=== PATIENT | male | born 1970 | race Caucasian/White ===

== ENCOUNTER → 2017-05-26 | Outpatient (CLI) | payer MEDICARE, MEDICAID ==
[~2017-05-26] MED LIST: ACETAMINOPHEN-1 EAC1 PO; ACIPHEX 20 MG T20 MG PO; ASPIRIN325; ASPIRIN81 M2 PO; BACTRIM DS TAB1 EACH PO; BAYER CHEWABLE81 MG PO; CARVEDILOL12.5 MG; CARVEDILOL6.25 MG PO; CHANTIX1 MG PO; CHLORTHALIDONE25 MG PO; CLARITIN10 MG PO; CLEOCIN HCL300 MG PO; CLINDAMYCIN HC150 MG PO; COREG CR20 MG; CREON DR 24,001 EACH PO; CRESTOR10 MG; CRESTOR10 MG PO; DOXYCYCLINE 10100 M1 PO; DOXYCYCLINE 10100 M2 PO; DOXYCYCLINE 10100 MG PO; FISH OIL; FISH OIL 1,001000 M1 PO; FLEXERIL PO; FLOMAX0.4 MG PO; HIBICLENS120 ML; HUMALOG KW100 UNIT/1 SUBQ; IMDUR 30 MG TAB30 M1 PO; KEFLEX500 MG PO; KLOR-CON 1010 MEQ; LANTUS; LANTUS SOL100 UNIT/1 SUBQ; LASIX; LASIX 20 MG TAB20 MG PO; LASIX 40 MG TAB40 MG PO; LEVAQUIN 500 M500 MG PO; LIPITOR10 MG; LIPITOR20 MG PO; LYRICA 75 MG CA75 MG PO; NAPROSYN375 MG PO; NICOTINE TRANSD21 M1; NORCO 5-325 TA1 EACH PO; NORCO 7.5-3251 EACH PO; NOVOLIN 70100 UNIT/5; NOVOLIN R100 UNIT/1 SUBQ; OXYCODONE HCL5 M1 PO; OXYCODONE-ACET1 EAC2 PO; OXYCONTIN20 M1 PO; PERCOCET 10-321 EACH PO; PERCOCET 5-3251 EACH PO; PERCOCET 7.5-31 EACH PO; PHENERGAN 25 MG25 MG PO; PLAVIX 75 MG TA75 M1; PRAVACHOL 20 MG20 M1 PO; PROBIOTIC1 EAC1 PO; REMERON SOLTAB45 M1 PO; TAMSULOSIN HCL0.4 M1 PO; TOPROL XL25 MG PO; TRICOR PO; WELLBUTRIN; XARELTO20 MG PO; ZESTRIL2.5 MG PO; ZOFRAN4 MG PO; ZPAK PO
--- NOTE | 2017-06-05 08:28 | PAINCON ---
[address] [address] PAIN MANAGEMENT CONSULTATION Name: CHRISTIE RODRIGUEZ Room: [facility] HERMINIA Erazo#: [id number] Admission: 05/26/17 Attend Phys: Donte Victor MD Discharge: Date of : 74 Report #: [id number] THIS REPORT FOR: //name// CC: Rob Victor DATE OF SERVICE: 05/26/2017 CHIEF COMPLAINT: Bilateral leg pain with recent pmunq-ioa-[id number] amputation of the right leg. HISTORY OF PRESENT ILLNESS: The patient states that he has had a long history of ischemia. He has had diabetes since age 4. Over the last few years, he has had more pain and discomfort involving his lower extremities. He has undergone surgeries to help correct the ischemic areas and improve circulation. After many surgeries and continued significant ischemia, the patient's condition required a right gychy-wkw-uncu amputation. He continues to have pain, which is quite problematic. He states that he has been using OxyContin since being discharged from the hospital and that he stayed in a facility for a period of time. He is on OxyContin 20 mg q. 12 hours and takes up to six 10 mg tablets daily. He feels that Lyrica 3 times a day may be of some benefit. He continues to have phantom limb pain involving the amputated extremity. He rates his pain as a 7/10. He feels that with the current medication dosing he is able to continue with physical therapy and occupational therapy. The patient states that he has been on opioid medications for quite some time. He received some opioids for a period of time by a primary care physician in his hometown. The patient also has a history of coronary artery disease and has had coronary bypass grafting in the past. He states that his blood sugars can be somewhat difficult to control. He feels that his legs are basically in a vice. The phantom pain is problematic. He notes the pain is somewhat worse when he is standing or attempting to stand. Pain is improved by his current medications. He describes his discomfort as continuous, steady, constant, cramping, aching, crushing, pulling, throbbing, pounding, sharp, stabbing, and tender. Again, is a 7/10, oftentimes it can rise to the level of an 8/10. ALLERGIES: NAPROSYN. ADDENDUM MEDICATIONS: 1. Flomax 0.4 mg p.o. daily. 2. Lyrica 150 [place] [address] PAIN MANAGEMENT CONSULTATION Name: CHRISTIE RODRIGUEZ Room: [facility]#: [id number] Admission: 05/26/17 Attend Phys: Donte Victor MD Discharge: Date of : 74 Report #: [id number] 3. Oxycodone 10 two tablets q. 4-6 hours. 4. OxyContin 20 mg ER 12 with abuse-deterrent b.i.d. 5. Remeron 45 mg at bedtime. 6. Metoprolol ER 25 mg extended release. 7. Claritin 10 mg daily. 8. Lisinopril 2.5 mg daily. 9. Humalog 100 units per meal subcutaneous as directed. 10. Lantus 100 units subq 20 units at bedtime. 11. Lasix 20 mg b.i.d. 12. Lipitor 20 mg daily. 13. Aspirin 81 mg daily. PAST MEDICAL HISTORY: 1. Chronic pain, lower extremity, status post rikja-skp-hulz amputation, because of ischemia. 2. Low back pain. 3. Coronary artery disease, status post CABG. 4. Hypercholesterolemia. 5. Hypertension. 6. Peripheral vascular disease. 7. Diabetes type 1 since age 4. 8. Peripheral neuropathy. 9. Irritable bowel. 10. Phantom limb pain, status post amputation of the right leg. PAST SURGICAL HISTORY: Quadruple bypass in 2007 and ouhge-cdt-cadm amputation, right leg in 03/2017. SOCIAL HISTORY: The patient is not working. Admits to tobacco use for the past 30 years, 1 pack a day at this juncture. PAIN CLINIC ASSESSMENT: 1. The patient is not being treated for osteoarthritis or rheumatoid arthritis. 2. Height 5 feet 8 inches, weight 160 pounds, BMI is 24. 3. Vital signs: Blood pressure 113/53, heart rate 85, respiratory rate 16, room air saturation is 100%, temperature 98.9. Pain intensity 7/10. 4. Fall risk. The patient has a recent amputation of the right leg above the knee. He states that he has fallen in the last 3 months. He is in a wheelchair at this juncture. 5. The patient is not on a blood thinner. 6. History of hypertension. The patient is being treated for hypertension. 7. Opioid therapy greater than 6 weeks. The patient is on opioid medications and has a score of 150 morphine equivalents. 8. Risk assessment tool. 9. Functional assessment tool. 10. Recreational drug use: The patient denies use of recreational drugs. [address] [place] [address] PAIN MANAGEMENT CONSULTATION Name: CHRISTIE RODRIGUEZ Room: [facility]#: [id number] Admission: 05/26/17 Attend Phys: Donte Victor MD Discharge: Date of : 74 Report #: [id number] 11. Tobacco. The patient does smoke cigarettes, has smoked for 30 years and continues to smoke 1 pack of cigarettes per day. 12. Alcohol: The patient denies use of any significant alcohol intake. LABORATORY DATA: No laboratory values were available at the time of our interview. PHYSICAL EXAMINATION: GENERAL: The patient is a white male in a wheelchair. Appears his stated age. Has numerous tattoos. He is alert and oriented x 3. Speech is fluent. HEENT: Normocephalic, atraumatic. Extraocular eye muscles intact. Hearing appears within normal limits. Buccal membranes are moist. His sclerae are nonicteric. NECK: Without JVD or bruits. Upper extremity strength is judged to be 5/5 for the major muscle groups. CHEST: Clear to auscultation. HEART: Regular rate. ABDOMEN: Nontender. MUSCULOSKELETAL: Does not appear to have significant kyphosis, scoliosis, or lordosis. The patient has an amputated above the knee procedure on the right. Complains of pain and discomfort down the left leg with some numbness down into the area of his feet. States that there is a vice-like feeling in his left leg. Notes the sensations of phantom changes on the right. Does not have prosthesis in place. IMPRESSION: Chronic pain with history of opioid use the patient states for about 10 years. Recent release from the hospital and convalescent in a nursing facility about 3 weeks. The patient continues to complain of claudication. REVIEW OF SYSTEMS: Questionnaire indicates weight changes, fever, night sweats, fatigue, hearing, ringing in the ears, ear drainage, chronic sinus problems, rhinitis, sore throat, heart trouble, chest pain, swelling in the foot, chronic frequent cough, shortness of breath, loss of appetite, abdominal pain, history of peptic ulcer discomfort, diabetes, joint pain, joint stiffness, joint weakness, muscle pain, cramps, difficulty walking, lightheadedness, numbness and tingling sensation, depression, insomnia, anemia. Pain impact score 60/61 indicating significant impact on his activities of daily living. CURRENT MEDICAL PROBLEMS: 1. Chronic pain, status post qmqbg-nkb-jovh amputation on the right. 2. Coronary artery disease. 3. Hypercholesterolemia. 4. Peripheral vascular disease. 5. Phantom limb pain. 6. Diabetes type 1. [place] [address] PAIN MANAGEMENT CONSULTATION Name: CHRISTIE RODRIGUEZ Room: [facility]#: [id number] Admission: 05/26/17 Attend Phys: Donte Victor MD Discharge: Date of : 74 Report #: [id number] RECOMMENDATIONS: We discussed treatment options with the patient. He states that he has been on opioid medications for quite some time. We have explained to him that before we could consider dispensing medications, all records from the last 10 years of opioid dispensation must be provided. The patient has some difficulties with his memory. He does admit to having tried methadone and used methadone, described having used fentanyl in the past. States that he has been getting medications from a somewhat hometown physician for a period of time. He stated that he had received opioid medications when in [place] prior to that. He is on a regimen of opioid medications commence with 140 morphine equivalents. The CDC recommends at maximum 90 mEq per day. Again, he states that he would get all of his old records. We have indicated that we would review them. Again, if he has had any problems whatsoever with opioid medications, we do not dispense opioid medications for patients who had encumbrances. He states that he will get all the information to us. Again, after a thorough review of his medications, we will see whether or not he would qualify for opioid medications. If not, the appropriate direction would be for his current physicians to wean him off of his opioid medications. We would like to thank you for letting us participate in his care. We hope he continues to improve. <ELECTRONICALLY SIGNED> By: Donte Victor MD 06/05/17 [id number]. Lui Victor MD /[facility]
== END ==
LOC: M.PC 00:26
DX: I25.10 Atherosclerotic heart disease of native coronary artery without angina pectoris (principal); E10.8 Type 1 diabetes mellitus with unspecified complications; I10 Essential (primary) hypertension; E78.00 Pure hypercholesterolemia, unspecified; I73.9 Peripheral vascular disease, unspecified; M54.5 Low back pain; G89.29 Other chronic pain; G54.6 Phantom limb syndrome with pain